=== PATIENT | female | born 1985 | race African-American/Black ===

== ENCOUNTER 2020-01-31 16:38 | Outpatient (CLI) | payer BC, OTHER ==
--- NOTE | 2020-01-31 17:04 | ULT ---
LEFT LOWER EXTREMITY DOPPLER VENOUS ULTRASOUND PROVIDED CLINICAL HISTORY: Left lower extremity pain TECHNIQUE: Grayscale and color Doppler sonography with spectral analysis was performed of the left common femora l, femoral, popliteal, posterior tibial, greater saphenous and profunda femoral veins. FINDINGS: There is normal compression, flow and augmentation seen within the deep venous structures o f the left lower extremity. IMPRESSION: No sonographic evidence for left lower extremity deep venous thrombosis.
== END 2020-01-31 16:39 | disposition home or self-care (01) ==
LOC: SCSULT 16:38
PROVIDERS: ATTEND Student in an Organized Health Care Education/Training Program
DX: M79.662 Pain in left lower leg (principal)

== ENCOUNTER 2020-02-04 15:48 | Outpatient (CLI) | payer BC, OTHER ==
[2020-02-05 14:03] LABS: SARS-CoV-2 MS2 Positive; SARS-CoV-2 N Gene Negative; SARS-CoV-2 S Gene Negative; SARS-CoV-2 orf1ab Negative
== END 2020-02-04 15:49 | disposition home or self-care (01) ==
LOC: SCSLAB 15:48
PROVIDERS: ATTEND Student in an Organized Health Care Education/Training Program
DX: Z01.812 Encounter for preprocedural laboratory examination (principal); Z11.59 Encounter for screening for other viral diseases
CPT/HCPCS: 87635; U0003

== ENCOUNTER 2020-02-06 05:45 | Inpatient (IN) | payer BC, OTHER ==
[2020-02-06 06:14] VITALS: BMI 33.3
[2020-02-06] MEDS ORDERED: hydrALAZINE 20 MG/ML VIAL SLOW IVP PRN ×2 (06:14→14:33)
[2020-02-06] MEDS ORDERED: Promethazine HCl 25 MG/ML VIAL IM PRN ×3 (06:14→14:33)
[2020-02-06] MEDS ORDERED: Ondansetron PF 4 MG/2 ML Vial IVP PRN ×3 (06:14→14:33)
[2020-02-06] MEDS: Lactated Ringer's 1,000 ML IV SCH ×3 (06:23→09:59)
[2020-02-06] MEDS ORDERED: Bicitra 30 ML UDCUP PO SCH (06:30)
[2020-02-06] MEDS ORDERED: CEFAZOLIN 2 GM in Premix Bag 1 BAG IVPB SCH (06:30)
[2020-02-06 06:38] LABS: Hemoglobin 11.2 g/dL (12.0-16.0); Mean Corpuscular HGB CONC 32.5 g/dL (32.0-36.0); Mean Corpuscular Hemoglobin 26.9 pg (27.0-31.0); Platelet Count 164 thou/uL (130-400); RBC Distribution Width 13.3 % (11.5-14.5); Red Blood Cell (RBC) Count 4.14 mill/uL (4.20-5.40); White Blood Cell (WBC) Count 7.4 thou/uL (4.8-10.8)
[2020-02-06 07:15] LABS: Syphilis Antibody Nonreactive (Nonreactive); Syphilis Antibody Index 0.08 S/CO (<1.00 Non-Reactive)
[2020-02-06 07:16] LABS: Hep B Surf Ag Non-Reactive S/CO (NonReactive)
--- NOTE | 2020-02-06 07:33 | PDOC.LDHP ---
Labor and Delivery H&P Chief complaint: scheduled section HPI: 34yo at 39w by LMP c/w first trimester sono here for RCS. 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 AMA neg NIPT Current complications: none Abnormal US findings: No Past Medical History: denies Current medications: pre-jessica vitamins, iron Previous surgical history: low tranverse CS Allergies/Adverse Reactions: Allergies Allergy/AdvReac Type Severity Reaction Status Date / Time No Known Allergies Allergy Verified 02/06/20 05:58 Social history: none - Physical Exam Vital signs reviewed and normal: yes General: NAD Heart: RRR Lungs: CTAB Abdomen: gravid Extremeties: no edema FHT: category 1 [place] contractions every: none - OB Labs Blood type: A RH: positive Antibody Screen: negative HIV: negative RPR: negative HEPSAg: negative 1 hour GCT: negative GBS: positive Urine drug screen: negative Rubella: immune - Assessment L&D Assessment: scheduled repeat section - Plan Plan: admit to L&D, to OR for section, informed consent obtained, anesthesia consult for pain management
[2020-02-06] MEDS ORDERED: MORPHINE 5 MG/10 ML PF VIAL ONE (12:09)
[2020-02-06] MEDS ORDERED: Oxytocin 10 UNITS/ML VIAL ONE (12:09)
[2020-02-06] MEDS ORDERED: PHENYLEPHRINE-NS 100 MCG/ML 10 ML SYRINGE ONE ×2 (12:09→13:00)
--- NOTE | 2020-02-06 12:19 | PDOC.OPDEL ---
OB Operative/Delivery Note Delivery Dr/Surgeon: Savanah Assist: Light Pre-Delivery Diagnosis: scheduled section Procedure/Post Delivery Dx: repeat low transverse CS Weeks gestation: 39 Anesthesia: spinal - Additional Findings/Plan Placenta delivered: spontaneous findings: low transverse hysterotomy without extension, normal uterus, normal tubes, normal ovaries Post delivery plan: routine recovery
[2020-02-06] MEDS ORDERED: HYDROmorphone 2 MG/ML VIAL SLOW IVP PRN (13:28)
[2020-02-06] MEDS ORDERED: L&D-Morphine 4 MG/ML VIAL SLOW IVP PRN (13:28)
[2020-02-06] MEDS ORDERED: diphenhydrAMINE 50 MG/ML VIAL IVP PRN (13:28)
[2020-02-06] MEDS ORDERED: Ondansetron HCl/PF 4 MG/2 ML Vial IVP PRN (13:28)
[2020-02-06] MEDS ORDERED: Naloxone HCl 0.4 mg/ml Vial IVP PRN ×2 (13:28)
[2020-02-06] MEDS ORDERED: Naloxone HCl 0.4 mg/ml Vial IV PRN (13:28)
[2020-02-06] MEDS ORDERED: Meperidine HCl/PF 25 MG/ML VIAL SLOW IVP PRN (13:28)
[2020-02-06] MEDS ORDERED: Promethazine HCl 25 MG SUPP PR PRN (13:28)
[2020-02-06] MEDS ORDERED: Ketorolac Tromethamine 30 MG/ML VIAL IVP PRN (13:28)
[2020-02-06] MEDS ORDERED: Communication Order-Pharmacy FS SCH (13:30)
[2020-02-06] MEDS ORDERED: Ketorolac Tromethamine 30 MG/ML VIAL IVP SCH (13:30)
[2020-02-06] MEDS ORDERED: Ketorolac Tromethamine 30 MG/ML VIAL ONE (14:18)
[2020-02-06] MEDS ORDERED: Lanolin Ointment 7 GM TUBE TOP PRN (14:33)
[2020-02-06] MEDS ORDERED: Bisacodyl 10 MG SUPP PR PRN (14:33)
[2020-02-06] MEDS ORDERED: Acetaminophen 325 MG TAB PO PRN (14:33)
[2020-02-06] MEDS ORDERED: Ibuprofen 800 MG TAB PO SCH (14:45)
[2020-02-06] MEDS: diphenhydrAMINE 25 MG CAP PO PRN ×2 (16:33→20:57)
[2020-02-06] MEDS: Docusate Calcium (SURFAK) 240 MG CAP PO SCH (20:57)
[2020-02-06] MEDS: Simethicone Chewable 80 MG TAB PO PRN (20:57)
[2020-02-06] MEDS: Ibuprofen 800 MG TAB PO SCH (20:57)
[2020-02-06] MEDS: Ferrous Sulfate 325 MG TAB PO SCH (22:43)
[2020-02-07] MEDS: Ibuprofen 800 MG TAB PO SCH ×3 (05:45→21:35)
[2020-02-07] MEDS: Simethicone Chewable 80 MG TAB PO PRN ×2 (05:45→09:24)
[2020-02-07 05:59] LABS: Hemoglobin 10.2 g/dL (12.0-16.0); Mean Corpuscular HGB CONC 31.9 g/dL (32.0-36.0); Mean Corpuscular Hemoglobin 26.9 pg (27.0-31.0); Mean Corpuscular Volume 84.2 fL (78.0-98.0); Mean Platelet Volume 9.6 fL (7.4-10.4); Platelet Count 156 thou/uL (130-400); RBC Distribution Width 13.4 % (11.5-14.5); Red Blood Cell (RBC) Count 3.79 mill/uL (4.20-5.40); White Blood Cell (WBC) Count 9.4 thou/uL (4.8-10.8)
[2020-02-07] MEDS: HYDROcodone/Acetaminophen 5/325 mg Tablet PO PRN ×3 (08:22→21:41)
--- NOTE | 2020-02-07 09:03 | PDOC.PP ---
Post Progress Note Post Day #: 1 PO intake tolerated: yes Flatus: yes Ambulation: yes Vital Signs (12 hours) Temp Pulse Resp BP Pulse Ox 02/07/20 07:47 98.2 F 93 20 113/56 L 98 02/07/20 05:45 98.5 F 81 16 105/61 02/07/20 00:05 98.6 F 89 16 107/62 Weight Weight 200 lb - Physical Examination General: NAD Respiratory: non-labored breathing Abdominal: no distention, appropriately TTP Skin: no rash Neurological: no gross focal deficits Psychiatric: normal affect Result Diagrams: 02/07/20 05:31 Additional Labs: Post Labs Blood Type A POSITIVE 02/06/20 07:15 Hep Bs Antigen Non-Reactive S/CO (NonReactive) 02/06/20 06:28 - Assessment/Plan POD1 s/p RCS VSSAF Doing well met milestones, chivo reg diet, ambulating, voiding. Pain controlled on po meds Rh pos RImm Cont PP care
[2020-02-07] MEDS: Docusate Calcium (SURFAK) 240 MG CAP PO SCH ×2 (09:23→21:34)
[2020-02-07] MEDS: Ferrous Sulfate 325 MG TAB PO SCH ×2 (09:23→21:19)
[2020-02-07] MEDS: Prenatal Vitamin 1 TAB PO SCH (09:24)
[2020-02-07] MEDS ORDERED: Adacel (T-DAP) 0.5 ML SYRINGE IM ONE (14:33)
[2020-02-08] MEDS: Ibuprofen 800 MG TAB PO SCH ×2 (05:07→14:07)
[2020-02-08] MEDS: HYDROcodone/Acetaminophen 5/325 mg Tablet PO PRN ×2 (07:11→14:07)
[2020-02-08] MEDS: Simethicone Chewable 80 MG TAB PO PRN (07:12)
[2020-02-08 07:34] VITALS: BP 119/72; TEMP 98.7
[2020-02-08] MEDS: Ferrous Sulfate 325 MG TAB PO SCH (08:02)
[2020-02-08] MEDS: Docusate Calcium (SURFAK) 240 MG CAP PO SCH (08:30)
[2020-02-08] MEDS: Prenatal Vitamin 1 TAB PO SCH (08:30)
== END 2020-02-08 16:08 | disposition home or self-care (01) | DRG 788 ==
LOC: L&D 05:45 → 3SW 15:32
PROVIDERS: ADMIT Student in an Organized Health Care Education/Training Program; ATTEND Student in an Organized Health Care Education/Training Program
PROC: 10D00Z1 Extraction of Products of Conception, Low, Open Approach (ICD-10-PCS; principal; 2020-02-06)
DX: O34.211 Maternal care for low transverse scar from previous cesarean delivery (principal); O99.824 Streptococcus B carrier state complicating childbirth; Z3A.39 39 weeks gestation of pregnancy; Z37.0 Single live birth
CPT/HCPCS: 36415; 51702; 85027; 86780; 86850; 86900; 86901; 87340; 87635; J0690; J1885; J2274; J2590; Q0163; U0003